=== PATIENT | male | born 1960 | race Caucasian/White ===

== ENCOUNTER 2023-06-07 21:53 | Emergency (ER) | payer OTHER, MEDICAID ==
[~2023-06-07] VITALS: Ht 172.7 cm; Wt 79.0 kg
[2023-06-07 21:55] VITALS: O2SAT 90
[2023-06-07 22:20] VITALS: PULSE 91; RESP 30
[2023-06-07] MEDS ORDERED: ALBUTEROL (0.5%) 2.5MG/0.5ML NEB HHN ONE (22:30)
[2023-06-07] MEDS ORDERED: ATROPINE SULFATE 1MG/ML VIAL IV ONE (22:30)
[2023-06-07 22:35] LABS: BG CARBOXYHEMOGLOBIN 0.6 % (0.5-1.5); BG DEOXYHEMOGLOBIN 1.1 % (0.0-5.0); BG FRACTION INSPIRED OXYGEN 100; BG HCO3 ACT 25.6 mmol/L (22.0-26.0); BG METHEMOGLOBIN 0.4 % (0.0-1.5); BG OXYGEN SATURATION 98.9 % (92.0-98.5); BG OXYHEMOGLOBIN 97.9 % (94.0-97.0); BG PCO2 92.1 mmHg (35.0-45.0); BG PH 7.061 (7.350-7.450); BG PO2 186.7 mmHg (75.0-100.0); BG SAMPLE SITE LEFT RADIAL; BG VENT MODE VENT - P/C
[2023-06-07 22:37] LABS: BASOPHILS % 0.5 % (0.0-2.0); DIFFERENTIAL COMMENT 0; EOSINOPHILS % 3.9 % (0.0-5.0); HEMATOCRIT. 41.5 % (42.0-52.0); HEMOGLOBIN. 13.1 g/dL (14.0-18.0); LYMPHOCYTES % 26.7 % (20.0-50.0); MEAN CORPUSCULAR HEMOGLOBIN 29.9 pg (28.0-32.0); MEAN CORPUSCULAR HGB CONC 31.6 g/dL (31.0-37.0); MEAN CORPUSCULAR VOLUME 94.8 fL (80.0-94.0); MEAN PLATELET VOLUME 12.3 fl (7.4-10.4); MONOCYTES % 5.1 % (2.0-8.0); NEUTROPHILS % 63.8 % (40.0-76.0); PLATELET 182 x1000/uL (130-400); RED BLOOD CELL COUNT 4.38 mill/uL (4.7-6.1); RED CELL DISTRIBUTION WIDTH 17.4 % (11.6-14.6); WHITE BLOOD COUNT 17.5 x1000/uL (4.5-11.0)
[2023-06-07 22:39] LABS: CHLORIDE 105 mEq/L (98-107); INDEX HEMOLYSI 4 (1-3); INDEX ICTERIC 1 (1-4); INDEX LIPEMIC 1 (1-3); SODIUM 135 mEq/L (136-145)
[2023-06-07] MEDS ORDERED: SODIUM BICARBONATE 8.4% 1 MEQ/ML 50ML SYR IV ONE (22:45)
[2023-06-07 22:47] LABS: POTASSIUM 5.1 mEq/L (3.5-5.1)
[2023-06-07 22:48] LABS: ALANINE AMINOTRANSFERASE 88 IU/L (13-61); ALBUMIN 3.2 g/dL (3.4-5.0); ASPARTATE AMINOTRANSFERASE 58 IU/L (15-37); BILIRUBIN TOTAL 0.7 mg/dL (0.1-1.0); CALCIUM 8.7 mg/dL (8.5-10.1); CARBON DIOXIDE 30 mEq/L (21-32); CREATININE 0.6 mg/dL (0.6-1.3); GLUCOSE 127 mg/dL (70-105); NT PRO B-TYPE NATRIURETIC PEP 144 pg/mL (5-125); PROTEIN TOTAL 8.8 g/dL (6.0-8.3); TROPONIN I HIGH SENSITIVITY 29 ng/L (<78); UREA NITROGEN BLOOD 41 mg/dL (7-21)
[2023-06-07] MEDS ORDERED: VANCOMYCIN 1G PREMIX 200 ML IV SCH (23:15)
[2023-06-07] MEDS ORDERED: CEFEPIME 1,000 MG in DEXTROSE 5% WATER 50 ML IV SCH (23:15)
[2023-06-07 23:32] VITALS: PULSE 79; RESP 27
[2023-06-08 00:34] LABS: INR 1.3; PARTIAL THROMBOPLASTIN TIME 31.9 sec (23.4-31.0); PROTHROMBIN TIME 13.5 sec (9.6-11.0)
[2023-06-08 00:44] LABS: BG BASE EXCESS 0.8 mmol/L (-2.0-2.0); BG CARBOXYHEMOGLOBIN 0.1 % (0.5-1.5); BG DEOXYHEMOGLOBIN 14.8 % (0.0-5.0); BG HCO3 ACT 26.3 mmol/L (22.0-26.0); BG METHEMOGLOBIN 0.2 % (0.0-1.5); BG OXYGEN SATURATION 85.2 % (92.0-98.5); BG OXYHEMOGLOBIN 84.9 % (94.0-97.0); BG PCO2 45.1 mmHg (35.0-45.0); BG PH 7.383 (7.350-7.450); BG PO2 50.3 mmHg (75.0-100.0); BG TOTAL HEMOGLOBIN 12.5 g/dL (12.0-18.0)
[2023-06-08 01:40] VITALS: PULSE 85; RESP 34
[2023-06-08 03:40] VITALS: PULSE 82; RESP 26
[2023-06-08 06:00] VITALS: BP 116/71; PULSE 78; RESP 20; TEMP 99.6
== END 2023-06-08 06:23 | disposition short-term general hospital (02) ==
LOC: ER 21:53
DX: J96.92 Respiratory failure, unspecified with hypercapnia (principal); J18.9 Pneumonia, unspecified organism; Y95 Nosocomial condition; R62.7 Adult failure to thrive; I10 Essential (primary) hypertension; Z20.822 Contact with and (suspected) exposure to COVID-19
CPT/HCPCS: 99291; 96375; 87426; 80053; 83880; 83605; 85025; 86850; 86900; 86901; 87040; 84484; 36415; 71045; 94640; 82805 ×2; 82375 ×2; 93005; 36600 ×2; 96365; 70450; 96366; 85610; 85730; 96368; J0461; J0692; J3490; J7060; C9803; J3370; 94002

== ENCOUNTER 2024-06-11 12:39 | Emergency (ER) | payer OTHER ==
[~2024-06-11] VITALS: Ht 165.1 cm; Wt 70.0 kg
[2024-06-11 12:40] VITALS: PULSE 75; RESP 19; O2SAT 100
[2024-06-11 12:42] VITALS: O2SAT 98
[2024-06-11 13:18] LABS: CLARITY URINE TURBID (CLEAR); COLOR URINE YELLOW (YELLOW); GLUCOSE URINE NEGATIVE (NEGATIVE); KETONES URINE NEGATIVE (NEGATIVE); LEUKOCYTE ESTERASE URINE 3+ (NEGATIVE); NITRITE URINE POSITIVE (NEGATIVE); OCCULT BLOOD URINE TRACE (NEGATIVE); PROTEIN URINE 1+ (NEGATIVE); SPECIFIC GRAVITY URINE 1.012 (1.005-1.030); UROBILINOGEN URINE 0.2 E.U./dL (0.2-1.0)
[2024-06-11 13:22] LABS: BG BASE EXCESS 3.3 mmol/L (-2.0-2.0); BG CARBOXYHEMOGLOBIN 0.2 % (0.5-1.5); BG DEOXYHEMOGLOBIN 1.3 % (0.0-5.0); BG FRACTION INSPIRED OXYGEN 35; BG HCO3 ACT 27.3 mmol/L (22.0-26.0); BG METHEMOGLOBIN 0.3 % (0.0-1.5); BG OXYGEN SATURATION 98.7 % (92.0-98.5); BG OXYHEMOGLOBIN 98.2 % (94.0-97.0); BG PCO2 39.2 mmHg (35.0-45.0); BG PH 7.461 (7.350-7.450); BG PO2 107.2 mmHg (75.0-100.0); BG SAMPLE SITE RIGHT RADIAL; BG TOTAL HEMOGLOBIN 8.5 g/dL (12.0-18.0); BG VENT MODE VENT - AC/VC
[2024-06-11 13:28] LABS: HEMATOCRIT. 24.4 % (42.0-52.0); MEAN CORPUSCULAR HEMOGLOBIN 30.8 pg (28.0-32.0); MEAN CORPUSCULAR HGB CONC 32.7 g/dL (31.0-37.0); MEAN PLATELET VOLUME 9.6 fl (7.4-10.4); PLATELET 232 x1000/uL (130-400); RED BLOOD CELL COUNT 2.59 mill/uL (4.7-6.1); RED CELL DISTRIBUTION WIDTH 14.2 % (11.6-14.6); WHITE BLOOD COUNT 12.8 x1000/uL (4.5-11.0)
[2024-06-11 13:35] LABS: COARSE GRANULAR CASTS URINE 0-5 /lpf; WBC URINE TNTC /hpf (0-2)
[2024-06-11 13:37] LABS: CARBON DIOXIDE 26 mEq/L (21-32); CHLORIDE 86 mEq/L (98-107)
[2024-06-11 13:38] LABS: CALCIUM 10.1 mg/dL (8.7-10.4)
[2024-06-11 13:39] LABS: INR 1.1; PROTHROMBIN TIME 11.9 sec (9.6-11.0)
[2024-06-11 13:39] LABS: BACTERIA URINE 4+; SQUAMOUS EPITHELIAL CELL URINE 1+ /lpf (RARE/1+); YEAST URINE 1+
[2024-06-11 13:41] LABS: DIFFERENTIAL COMMENT 1
[2024-06-11 13:43] LABS: GLUCOSE 185 mg/dL (70-105); TROPONIN I HIGH SENSITIVITY 9 ng/L (3.0-53); UREA NITROGEN BLOOD 56 mg/dL (9-23)
[2024-06-11 13:45] LABS: ALANINE AMINOTRANSFERASE 21 IU/L (10-49); ALBUMIN 3.6 g/dL (3.2-4.8); ASPARTATE AMINOTRANSFERASE 24 IU/L (<34); BILIRUBIN DIRECT 0.3 mg/dL (<=3.0); BILIRUBIN TOTAL 0.4 mg/dL (0.1-1.0); CREATINE KINASE 63 IU/L (46-171); PROTEIN TOTAL 7.4 g/dL (6.0-8.3)
[2024-06-11 13:52] LABS: SODIUM 116 mEq/L (136-145)
[2024-06-11] MEDS ORDERED: LIDOCAINE HCL 1% 10 MG/ML 10ML VIAL ONE (14:26)
[2024-06-11] MEDS: SODIUM CHLORIDE 0.9% 1,000 ML IV ONE (14:32)
[2024-06-11] MEDS: CEFTRIAXONE 2GM/50ML 50 ML IV ONE (14:40)
[2024-06-11 14:44] VITALS: RESP 15; O2SAT 98
[2024-06-11 16:12] VITALS: PULSE 68; RESP 15; O2SAT 100
[2024-06-11 16:14] LABS: PLATELET ESTIMATE NORMAL
[2024-06-11] MEDS ORDERED: DOCUSATE SODIUM 100MG CAPSULE PO PRN (16:30)
[2024-06-11] MEDS ORDERED: CLONIDINE 0.1MG TABLET PO PRN (16:30)
[2024-06-11] MEDS ORDERED: IPRATROPIUM/ALBUTEROL 0.5-3(2.5)MG/3ML NEB HHN PRN (16:30)
[2024-06-11] MEDS ORDERED: MAGNESIUM/ALUMINUM HYDROXIDE/SIMETHICONE 30ML UDC PO PRN (16:30)
[2024-06-11] MEDS ORDERED: ACETAMINOPHEN 325MG TABLET PEG PRN ×2 (16:30)
[2024-06-11] MEDS ORDERED: GUAIFENESIN 200MG/10ML SUGAR FREE UDC PO PRN (16:30)
[2024-06-11] MEDS: SODIUM CHLORIDE 0.9% 1,000 ML IV SCH (17:13)
[2024-06-11] MEDS: SODIUM CHLORIDE 1000MG TABLET PO NR (17:16)
[2024-06-11] MEDS ORDERED: DEXTROSE 50% WATER 50ML SYRINGE IV PRN (17:30)
[2024-06-11] MEDS: SODIUM CHLORIDE 1000MG TABLET PEG NR (17:55)
[2024-06-11] MEDS: MEROPENEM 1G/100ML 100 ML IV SCH (18:04)
[2024-06-11] MEDS: AZITHROMYCIN 500MG/250ML 250 ML IV SCH (18:04)
[2024-06-11 18:09] LABS: IRON 28 ug/dL (65-175)
[2024-06-11 18:12] LABS: TOTAL IRON BINDING CAPACITY 199 ug/dl (250-425)
[2024-06-11 18:16] LABS: FERRITIN 1338 ng/mL (22-322)
[2024-06-11 18:17] LABS: FOLIC ACID (FOLATE) SERUM > 20.00 ng/mL (>5.38); VITAMIN B12 SERUM 1559 pg/mL (211-911)
[2024-06-11 18:20] VITALS: PULSE 79; RESP 21; O2SAT 96
[2024-06-11] MEDS ORDERED: INSULIN LISPRO 100 UNITS/ML SUBCUT SCH (18:20)
[2024-06-11] MEDS ORDERED: BLOOD SUGAR DIAGNOSTIC STRIP TEST SCH (18:20)
[2024-06-11 18:41] VITALS: BP 106/53; PULSE 79; RESP 21; TEMP 36.94740; O2SAT 18
[2024-06-11] MEDS ORDERED: ENOXAPARIN 40MG/0.4ML SYR SUBCUT SCH (21:00)
[2024-06-11] MEDS ORDERED: MEROPENEM 1G/100ML 100 ML IV SCH (22:00)
== END 2024-06-11 18:42 | disposition short-term general hospital (02) ==
LOC: ER 12:39 → EDBEDREQTM 15:16 → EDBEDREQ 15:16 → EDBEDREQSVC 15:36 → ER 18:42
DX: E87.1 Hypo-osmolality and hyponatremia (principal); N39.0 Urinary tract infection, site not specified; J96.10 Chronic respiratory failure, unspecified whether with hypoxia or hypercapnia; E11.9 Type 2 diabetes mellitus without complications; E61.1 Iron deficiency; I10 Essential (primary) hypertension; Z20.822 Contact with and (suspected) exposure to COVID-19; Z93.0 Tracheostomy status; Z98.890 Other specified postprocedural states
CPT/HCPCS: 80076; 80048; 81003; 82550; 82607; 82728; 82746; 83036; 83880; 83540; 83550; 83605; 83735; 83930; 84100; 85025; 85610; 87040; 87086; 87186; 84484; 87077; 36415; 84145; 71045 ×2; 36573; 82805; 82375; 99291; 87426; 36600; J0456; J0696; J3490; J2185; J7030; Z7610; C1725; 94003